=== PATIENT | female | born 1940 | race Caucasian/White ===

== ENCOUNTER 2019-05-20 11:59 | Outpatient (CLI) | payer MEDICARE, OTHER | END 2019-05-20 23:59 | disposition home or self-care (01) | LOC: STAR 11:59 | PROVIDERS: ATTEND Orthopaedic Surgery | DX: Z01.818 Encounter for other preprocedural examination (principal); M17.9 Osteoarthritis of knee, unspecified; R94.31 Abnormal electrocardiogram [ECG] [EKG] | CPT/HCPCS: 36415; 80053; 81001; 83036; 85025; 85610; 85730; 87077; 87081; 87086; 87186; 93005 ==

== ENCOUNTER 2019-08-08 11:25 | Observation (INO) | payer MEDICARE, OTHER ==
[2019-08-06 14:29] LABS: BASOPHILS # (AUTO) 0.05 x10^3/uL (0-0.1); BASOPHILS % (AUTO) 1 % (0-1); EOSINOPHILS # (AUTO) 0.25 x10^3/uL (0-0.4); EOSINOPHILS % (AUTO) 4 % (1-7); LYMPHOCYTES # (AUTO) 1.75 x10^3/uL (1-3.4); LYMPHOCYTES % (AUTO) 27 % (22-44); MD NO; MEAN CORPUSCULAR HEMOGLOBIN 30.8 pg (27.0-34.8); MEAN CORPUSCULAR HGB CONC 32.8 g/dL (32.4-35.8); MEAN PLATELET VOLUME 9.3 fL (7.4-10.4); MONOCYTES # (AUTO) 0.81 x10^3/uL (0.2-0.8); MONOCYTES % (AUTO) 13 % (2-9); NEUTROPHILS # (AUTO) 3.62 x10^3/uL (1.8-6.8); NEUTROPHILS % (AUTO) 56 % (42-75); PLATELET COUNT 164 x10^3/uL (130-400); RED BLOOD COUNT 4.68 x10^6/uL (3.82-5.3); RED CELL DISTRIBUTION WIDTH 13.9 % (9.6-15.2)
[2019-08-06 14:40] LABS: ANION GAP 5 mmol/L (5-15); CALCIUM 8.4 mg/dL (8.5-10.1); CHLORIDE 107 mmol/L (98-107); CREATININE 0.79 mg/dL (0.55-1.02)
[~2019-08-08] VITALS: Ht 172.7 cm; Wt 99.4 kg
[~2019-08-08 11:25] MED LIST: ASPI325T17 PO; CALC-725 PO; FURO20TA3 PO; GABA300C10 PO; IRON1TAB60 PO; LEVO137T3 PO; LIOT5TAB11 PO; OMEP-110 PO; PHEN15CA2 PO; POTA10CA PO; RIVA20TA PO; SIMV20TA3 PO
[2019-08-08 11:49] VITALS: BP 176/66
[2019-08-08] MEDS: SODIUM CHLORIDE 0.9% 1,000 ML IV SCH ×2 (12:00→20:00)
[2019-08-08] MEDS ORDERED: VANCOMYCIN 500 MG ONE (13:31)
[2019-08-08] MEDS ORDERED: MIDAZOLAM 1 MG/ML, 5ML ONE (13:31)
[2019-08-08] MEDS ORDERED: LIDOCAINE 1%, 20ML ONE (13:31)
[2019-08-08] MEDS ORDERED: FENTANYL PF 100 MCG/2ML ONE (13:31)
[2019-08-08] MEDS ORDERED: VANCOMYCIN PMX 1GM/200ML 200 ML ONE (13:31)
[2019-08-08] MEDS ORDERED: HOLD MEDICATION MC PRN (15:00)
[2019-08-08] MEDS ORDERED: HYDROcodone/APAP 5/325 TABLET PO PRN (15:00)
[2019-08-08 15:05] VITALS: BP 144/82
[2019-08-08 20:30] VITALS: BP 137/77
[2019-08-08] MEDS ORDERED: LIOTHYRONINE 5 MCG TABLET PO SCH ×2 (21:00)
[2019-08-08] MEDS: SODIUM CHLORIDE FLUSH 10ML SYR IVF SCH (21:09)
[2019-08-08 22:59] VITALS: BP 141/73
[2019-08-09 02:00] VITALS: BP 150/77
[2019-08-09] MEDS: SODIUM CHLORIDE 0.9% 1,000 ML IV SCH (04:00)
[2019-08-09] MEDS ORDERED: LEVOTHYROXINE 150 MCG TABLET PO SCH (06:00)
[2019-08-09] MEDS ORDERED: OMEPRAZOLE 20 MG CAPSULE.DR PO SCH (06:00)
[2019-08-09 07:51] VITALS: BP 161/80
[2019-08-09] MEDS: SODIUM CHLORIDE FLUSH 10ML SYR IVF SCH (07:54)
[2019-08-09] MEDS ORDERED: POTASSIUM CHLORIDE 10 MEQ TABLET.ER PO SCH (09:00)
[2019-08-09] MEDS ORDERED: MULTIVITAMINS WITH IRON TABLET PO SCH (09:00)
[2019-08-09] MEDS ORDERED: FUROSEMIDE 20 MG TABLET PO SCH (09:00)
== END 2019-08-09 09:58 | disposition home or self-care (01) ==
LOC: CACL 11:25 → 5SO 14:36 → CACL 14:50 → DCLOUNGE 08-09 09:45
PROVIDERS: ADMIT Internal Medicine Cardiovascular Disease; ATTEND Internal Medicine Cardiovascular Disease
DX: I48.91 Unspecified atrial fibrillation (principal); I10 Essential (primary) hypertension; E78.5 Hyperlipidemia, unspecified; E03.9 Hypothyroidism, unspecified; E66.9 Obesity, unspecified; E78.00 Pure hypercholesterolemia, unspecified; Z79.01 Long term (current) use of anticoagulants
CPT/HCPCS: 33207; 36415; 71045; 71046; 80048; 85025; 93005; 99156; C1779; C1786; C1892; G0378; J2250; J3010; J3370; J3490

== ENCOUNTER → 2019-11-19 | Outpatient (CLI) | payer MEDICARE, OTHER ==
[~2019-11-19] MED LIST changes: +LEVO150T5 PO; +SIMV20TA19 PO; -SIMV20TA3 PO
[2019-11-19 12:03] LABS: BASOPHILS # (AUTO) 0.05 x10^3/uL (0-0.1); BASOPHILS % (AUTO) 1 % (0-1); EOSINOPHILS # (AUTO) 0.17 x10^3/uL (0-0.4); EOSINOPHILS % (AUTO) 3 % (1-7); LYMPHOCYTES # (AUTO) 1.63 x10^3/uL (1-3.4); LYMPHOCYTES % (AUTO) 24 % (22-44); MD NO; MEAN CORPUSCULAR HEMOGLOBIN 30.4 pg (27.0-34.8); MEAN CORPUSCULAR HGB CONC 32.9 g/dL (32.4-35.8); MEAN CORPUSCULAR VOLUME 92.2 fL (80-100); MEAN PLATELET VOLUME 9.2 fL (7.4-10.4); MONOCYTES # (AUTO) 0.85 x10^3/uL (0.2-0.8); MONOCYTES % (AUTO) 12 % (2-9); NEUTROPHILS # (AUTO) 4.11 x10^3/uL (1.8-6.8); NEUTROPHILS % (AUTO) 60 % (42-75); PLATELET COUNT 156 x10^3/uL (130-400); RED BLOOD COUNT 4.96 x10^6/uL (3.82-5.3); RED CELL DISTRIBUTION WIDTH 13.8 % (9.6-15.2)
[2019-11-19 12:11] LABS: INTERNATIONAL NORMALIZED RATIO 1.24 (0.93-1.1); PROTHROMBIN TIME 13.2 Seconds (9.6-11.5)
[2019-11-19 12:14] LABS: ALBUMIN 2.9 g/dL (3.4-5.0); ANION GAP 6 mmol/L (5-15); CALCIUM 8.8 mg/dL (8.5-10.1); CHLORIDE 105 mmol/L (98-107)
[2019-11-19 12:17] LABS: ALANINE AMINOTRANSFERASE 10 U/L (12-78); ALKALINE PHOSPHATASE 63 U/L (45-117); BILIRUBIN,TOTAL 0.9 mg/dL (0.2-1.0); CREATININE 0.94 mg/dL (0.55-1.02); TOTAL PROTEIN 8.5 g/dL (6.4-8.2)
== END | disposition home or self-care (01) ==
LOC: STAR 10:43
PROVIDERS: ATTEND Orthopaedic Surgery
DX: Z01.818 Encounter for other preprocedural examination (principal); M17.9 Osteoarthritis of knee, unspecified
CPT/HCPCS: 36415; 80053; 83036; 85025; 85610; 85730; 87081; 93005

== ENCOUNTER 2019-11-27 10:23 | Observation (INO) | payer MEDICARE, OTHER ==
[~2019-11-27] VITALS: Ht 172.7 cm; Wt 94.7 kg
[~2019-11-27 10:23] MED LIST changes: +ACETAMINOPHEN 650 MG/20.3 ML UDC PO PRN; +BISACODYL 10 MG SUPP PR PRN; +DIPHENHYDRAMINE 25 MG CAPSULE PO PRN; +EPINEPHRINE 1 MG/ML, 1ML ONE; +HYDROcodone/APAP 5/325 TABLET PO PRN; +HYDROmorphone 1 MG/ML, 1ML INJ IV PRN; +KETOROLAC 60 MG/2 ML ONE; +MAGNESIUM HYDROXIDE 8%, 30ML UDC PO PRN; +ONDANSETRON 2MG/ML, 2ML IV PRN; +ONDANSETRON 4 MG TABLET PO PRN; +ROPIvacaine/PF 0.5%, 20 ML ONE; +SENNA/DOCUSATE TABLET PO PRN; +SODIUM CHLORIDE 0.9% 50 ML ONE; +TRANEXAMIC ACID 100 MG/ML, 10ML ONE; +VANCOMYCIN 1,000 MG ONE; +ZOLPIDEM 5MG TABLET PO PRN
[2019-11-27] MEDS ORDERED: GABAPENTIN 300 MG CAPSULE PO STA (10:41)
[2019-11-27] MEDS ORDERED: ACETAMINOPHEN 500 MG TABLET PO STA (10:41)
[2019-11-27] MEDS ORDERED: LACTATED RINGERS 1,000 ML IV SCH (10:42)
[2019-11-27] MEDS ORDERED: FENTANYL PF 250 MCG/5ML ONE (10:47)
[2019-11-27] MEDS ORDERED: LIDOCAINE 2% 100MG/5ML SYRINGE ONE (12:04)
[2019-11-27] MEDS ORDERED: hydrALAzine 20 MG/ML, 1ML ONE (12:04)
[2019-11-27] MEDS ORDERED: OXYcodone 5 MG/5 ML ORAL.SOL UDC PO PRN (12:30)
[2019-11-27] MEDS ORDERED: ONDANSETRON ODT 8 MG PO PRN (12:30)
[2019-11-27] MEDS ORDERED: PROMETHAZINE 25 MG/ML, 1ML IV PRN (12:30)
[2019-11-27] MEDS ORDERED: ONDANSETRON 2MG/ML, 2ML IV PRN (12:30)
[2019-11-27] MEDS ORDERED: PROMETHAZINE 25 MG SUPP PR PRN (12:30)
[2019-11-27] MEDS ORDERED: LABETALOL 5MG/ML, 20ML ONE (12:32)
[2019-11-27] MEDS ORDERED: ONDANSETRON 2MG/ML, 2ML ONE (12:32)
[2019-11-27] MEDS ORDERED: PROPOFOL 10 MG/ML, 20ML ONE (12:32)
[2019-11-27] MEDS ORDERED: CEFAZOLIN 1,000 MG ONE (12:32)
[2019-11-27] MEDS ORDERED: DEXAMETHASONE 4 MG/ML, 1ML ONE (12:32)
[2019-11-27] MEDS ORDERED: FENTANYL PF 100 MCG/2ML ONE (13:26)
[2019-11-27] MEDS ORDERED: OXYcodone 5 MG/5 ML ORAL.SOL UDC ONE (13:26)
[2019-11-27] MEDS: FENTANYL PF 100 MCG/2ML IV PRN ×4 (13:31→14:09)
[2019-11-27] MEDS ORDERED: HYDROmorphone 1 MG/ML, 1ML INJ ONE (13:42)
[2019-11-27] MEDS: HYDROmorphone 2 MG/ML, 1ML IVPush PRN ×2 (13:46→14:01)
[2019-11-27] MEDS: NS + 20MEQ KCL 1,000 ML IV SCH (15:17)
[2019-11-27] MEDS: DOCUSATE 100 MG CAPSULE PO SCH ×2 (17:44→19:39)
[2019-11-27] MEDS: FUROSEMIDE 20 MG TABLET PO SCH (17:44)
[2019-11-27] MEDS: ASPIRIN 81 MG TABLET EC PO SCH (17:44)
[2019-11-27] MEDS: POTASSIUM CHLORIDE 10 MEQ TABLET.ER PO SCH (17:44)
[2019-11-27 18:45] VITALS: BP 131/83
[2019-11-27] MEDS: OXYcodone IR 5MG TABLET PO PRN (19:40)
[2019-11-27] MEDS: CEFAZOLIN PMX 2GM/50ML 50 ML IVPB SCH (19:41)
[2019-11-27] MEDS ORDERED: LIOTHYRONINE 5 MCG TABLET PO SCH (21:00)
[2019-11-27 23:36] VITALS: BP 125/68
[2019-11-28 01:00] VITALS: BP 125/68
[2019-11-28 03:33] VITALS: BP 138/62
[2019-11-28] MEDS: NS + 20MEQ KCL 1,000 ML IV SCH ×2 (03:40→15:55)
[2019-11-28] MEDS: CEFAZOLIN PMX 2GM/50ML 50 ML IVPB SCH (04:20)
[2019-11-28] MEDS: ASPIRIN 81 MG TABLET EC PO SCH (05:29)
[2019-11-28] MEDS ORDERED: DEXAMETHASONE 4 MG/ML, 1ML IVPush SCH (06:00)
[2019-11-28] MEDS ORDERED: OMEPRAZOLE 20 MG CAPSULE.DR PO SCH (06:00)
[2019-11-28] MEDS ORDERED: LEVOTHYROXINE 150 MCG TABLET PO SCH (06:00)
[2019-11-28 07:02] VITALS: BP 126/71
[2019-11-28] MEDS ORDERED: OXYC5CAP2 PO (08:41)
[2019-11-28] MEDS ORDERED: TRAM50TA2 PO (08:44)
[2019-11-28] MEDS: DOCUSATE 100 MG CAPSULE PO SCH (09:44)
[2019-11-28] MEDS: FUROSEMIDE 20 MG TABLET PO SCH (09:44)
[2019-11-28] MEDS: POTASSIUM CHLORIDE 10 MEQ TABLET.ER PO SCH (09:44)
[2019-11-28] MEDS: OXYcodone IR 5MG TABLET PO PRN (14:29)
[2019-12-02] MEDS ORDERED: CEPH-368 PO (08:16)
== END 2019-11-28 17:31 | disposition home or self-care (01) ==
LOC: OUT 10:23 → 4NE 14:59 → OUT 20:55 → 4NE 20:56 → DCLOUNGE 11-28 17:18
PROVIDERS: ADMIT Orthopaedic Surgery; ATTEND Orthopaedic Surgery
DX: M17.11 Unilateral primary osteoarthritis, right knee (principal); M21.061 Valgus deformity, not elsewhere classified, right knee; I48.91 Unspecified atrial fibrillation; E03.9 Hypothyroidism, unspecified; Z79.899 Other long term (current) drug therapy; Z88.0 Allergy status to penicillin
CPT/HCPCS: 27447; 36415; 85014; 85018; 96365; 96366; 96375; 97110; 97116; 97161; 97165; 97530; C1713; C1776; G0378; J0171; J0360; J0690; J1100; J1170; J1885; J2405; J2704; J2795; J3010; J3370; J3480; J7120

== ENCOUNTER → 2020-10-16 | Outpatient (CLI) | payer MEDICARE, OTHER ==
[~2020-10-16] MED LIST changes: -ACETAMINOPHEN 650 MG/20.3 ML UDC PO PRN; -BISACODYL 10 MG SUPP PR PRN; +CEPH-368 PO; -DIPHENHYDRAMINE 25 MG CAPSULE PO PRN; -EPINEPHRINE 1 MG/ML, 1ML ONE; -HYDROcodone/APAP 5/325 TABLET PO PRN; -HYDROmorphone 1 MG/ML, 1ML INJ IV PRN; -KETOROLAC 60 MG/2 ML ONE; -MAGNESIUM HYDROXIDE 8%, 30ML UDC PO PRN; -ONDANSETRON 2MG/ML, 2ML IV PRN; -ONDANSETRON 4 MG TABLET PO PRN; +OXYC5CAP2 PO; -ROPIvacaine/PF 0.5%, 20 ML ONE; -SENNA/DOCUSATE TABLET PO PRN; -SODIUM CHLORIDE 0.9% 50 ML ONE; +TRAM50TA2 PO; -TRANEXAMIC ACID 100 MG/ML, 10ML ONE; -VANCOMYCIN 1,000 MG ONE; -ZOLPIDEM 5MG TABLET PO PRN
== END | disposition home or self-care (01) ==
LOC: CFH 14:43
PROVIDERS: ATTEND Physician Assistant Medical
DX: I08.3 Combined rheumatic disorders of mitral, aortic and tricuspid valves (principal); I11.9 Hypertensive heart disease without heart failure; I27.20 Pulmonary hypertension, unspecified; I48.91 Unspecified atrial fibrillation
CPT/HCPCS: 93306

== ENCOUNTER → 2020-10-24 | Outpatient (CLI) | payer MEDICARE, OTHER ==
[~2020-10-24] MED LIST changes: +WARF1TAB74 PO
[2020-10-24 11:06] LABS: INTERNATIONAL NORMALIZED RATIO 5.28 (0.93-1.1)
[2020-10-24 14:01] LABS: PROTHROMBIN TIME 55.1 Seconds (9.6-11.5)
== END | disposition home or self-care (01) ==
LOC: LAB 10:06
PROVIDERS: ATTEND Family Medicine
DX: I51.3 Intracardiac thrombosis, not elsewhere classified (principal)
CPT/HCPCS: 36415; 85610

== ENCOUNTER → 2020-11-02 | Outpatient (CLI) | payer MEDICARE, OTHER ==
[2020-11-02 12:51] LABS: INTERNATIONAL NORMALIZED RATIO 7.3 (0.93-1.1); PROTHROMBIN TIME 75.1 Seconds (9.6-11.5)
== END | disposition home or self-care (01) ==
LOC: LAB 11:23
PROVIDERS: ATTEND Family Medicine
DX: I51.3 Intracardiac thrombosis, not elsewhere classified (principal)
CPT/HCPCS: 36415; 85610

== ENCOUNTER → 2020-11-09 | Outpatient (CLI) | payer MEDICARE, OTHER ==
[2020-11-09 12:29] LABS: INTERNATIONAL NORMALIZED RATIO 4.11 (0.93-1.1); PROTHROMBIN TIME 42.8 Seconds (9.6-11.5)
== END | disposition home or self-care (01) ==
LOC: LAB 11:58
PROVIDERS: ATTEND Internal Medicine Cardiovascular Disease
DX: I48.20 Chronic atrial fibrillation, unspecified (principal); Z79.01 Long term (current) use of anticoagulants
CPT/HCPCS: 36415; 85610

== ENCOUNTER 2020-11-23 11:22 | Outpatient (CLI) | payer MEDICARE, OTHER ==
[2020-11-23 11:55] LABS: INTERNATIONAL NORMALIZED RATIO 3.08 (0.93-1.1); PROTHROMBIN TIME 32.2 Seconds (9.6-11.5)
== END 2020-11-23 23:59 | disposition home or self-care (01) ==
LOC: LAB 11:22
PROVIDERS: ATTEND Internal Medicine Cardiovascular Disease
DX: I48.20 Chronic atrial fibrillation, unspecified (principal); Z79.01 Long term (current) use of anticoagulants
CPT/HCPCS: 36415; 85610

== ENCOUNTER → 2021-01-04 | Outpatient (CLI) | payer MEDICARE, OTHER ==
[2021-01-04 12:48] LABS: INTERNATIONAL NORMALIZED RATIO 2.01 (0.93-1.1); PROTHROMBIN TIME 21.2 Seconds (9.6-11.5)
== END | disposition home or self-care (01) ==
LOC: LAB 12:19
PROVIDERS: ATTEND Internal Medicine Cardiovascular Disease
DX: I48.20 Chronic atrial fibrillation, unspecified (principal); Z79.01 Long term (current) use of anticoagulants
CPT/HCPCS: 36415; 85610

== ENCOUNTER → 2021-02-01 | Outpatient (CLI) | payer MEDICARE, OTHER ==
[2021-02-01 12:42] LABS: INTERNATIONAL NORMALIZED RATIO 1.75 (0.93-1.1); PROTHROMBIN TIME 18.5 Seconds (9.6-11.5)
== END | disposition home or self-care (01) ==
LOC: LAB 12:10
PROVIDERS: ATTEND Internal Medicine Cardiovascular Disease
DX: I48.20 Chronic atrial fibrillation, unspecified (principal); Z79.01 Long term (current) use of anticoagulants
CPT/HCPCS: 36415; 85610

== ENCOUNTER → 2021-02-08 | Outpatient (CLI) | payer MEDICARE, OTHER ==
[2021-02-08 12:30] LABS: INTERNATIONAL NORMALIZED RATIO 2.32 (0.93-1.1); PROTHROMBIN TIME 24.4 Seconds (9.6-11.5)
== END | disposition home or self-care (01) ==
LOC: LAB 12:02
PROVIDERS: ATTEND Internal Medicine Cardiovascular Disease
DX: I48.20 Chronic atrial fibrillation, unspecified (principal); Z79.01 Long term (current) use of anticoagulants
CPT/HCPCS: 36415; 85610

== ENCOUNTER → 2021-03-08 | Outpatient (CLI) | payer MEDICARE, OTHER ==
[2021-03-08 12:16] LABS: INTERNATIONAL NORMALIZED RATIO 3.96 (0.93-1.1); PROTHROMBIN TIME 41.2 Seconds (9.6-11.5)
== END | disposition home or self-care (01) ==
LOC: LAB 11:40
PROVIDERS: ATTEND Internal Medicine Cardiovascular Disease
DX: I48.20 Chronic atrial fibrillation, unspecified (principal); Z79.01 Long term (current) use of anticoagulants
CPT/HCPCS: 36415; 85610

== ENCOUNTER → 2021-03-17 | Outpatient (CLI) | payer MEDICARE, OTHER ==
[2021-03-17 12:02] LABS: INTERNATIONAL NORMALIZED RATIO 4.24 (0.93-1.1)
[2021-03-17 12:11] LABS: PROTHROMBIN TIME 44.1 Seconds (9.6-11.5)
== END | disposition home or self-care (01) ==
LOC: LAB 11:36
PROVIDERS: ATTEND Internal Medicine Cardiovascular Disease
DX: I48.20 Chronic atrial fibrillation, unspecified (principal); Z79.01 Long term (current) use of anticoagulants
CPT/HCPCS: 36415; 85610

== ENCOUNTER → 2021-03-24 | Outpatient (CLI) | payer MEDICARE, OTHER ==
[2021-03-24 09:28] LABS: INTERNATIONAL NORMALIZED RATIO 5.73 (0.93-1.1); PROTHROMBIN TIME 59.2 Seconds (9.6-11.5)
== END | disposition home or self-care (01) ==
LOC: LAB 08:51
PROVIDERS: ATTEND Internal Medicine Cardiovascular Disease
DX: I48.20 Chronic atrial fibrillation, unspecified (principal); Z79.01 Long term (current) use of anticoagulants
CPT/HCPCS: 36415; 85610

== ENCOUNTER → 2021-03-26 | Outpatient (CLI) | payer MEDICARE, OTHER ==
[2021-03-26 12:16] LABS: INTERNATIONAL NORMALIZED RATIO 4.35 (0.93-1.1); PROTHROMBIN TIME 45.2 Seconds (9.6-11.5)
== END | disposition home or self-care (01) ==
LOC: LAB 11:52
PROVIDERS: ATTEND Internal Medicine Cardiovascular Disease
DX: I48.20 Chronic atrial fibrillation, unspecified (principal); Z79.01 Long term (current) use of anticoagulants
CPT/HCPCS: 36415; 85610

== ENCOUNTER → 2021-04-02 | Outpatient (CLI) | payer MEDICARE, OTHER ==
[2021-04-02 11:53] LABS: INTERNATIONAL NORMALIZED RATIO 2.65 (0.93-1.1); PROTHROMBIN TIME 27.1 Seconds (9.6-11.5)
== END | disposition home or self-care (01) ==
LOC: LAB 11:24
PROVIDERS: ATTEND Internal Medicine Cardiovascular Disease
DX: I48.20 Chronic atrial fibrillation, unspecified (principal); Z79.01 Long term (current) use of anticoagulants
CPT/HCPCS: 36415; 85610

== ENCOUNTER → 2021-04-12 | Outpatient (CLI) | payer MEDICARE, OTHER ==
[2021-04-12 12:17] LABS: INTERNATIONAL NORMALIZED RATIO 1.75 (0.93-1.1); PROTHROMBIN TIME 18.2 Seconds (9.6-11.5)
== END | disposition home or self-care (01) ==
LOC: LAB 11:42
PROVIDERS: ATTEND Internal Medicine Cardiovascular Disease
DX: I48.20 Chronic atrial fibrillation, unspecified (principal); Z79.01 Long term (current) use of anticoagulants
CPT/HCPCS: 36415; 85610

== ENCOUNTER → 2021-04-27 | Outpatient (CLI) | payer MEDICARE, OTHER ==
[2021-04-27 11:53] LABS: INTERNATIONAL NORMALIZED RATIO 1.79 (0.93-1.1); PROTHROMBIN TIME 18.6 Seconds (9.6-11.5)
== END | disposition home or self-care (01) ==
LOC: LAB 11:24
PROVIDERS: ATTEND Internal Medicine Cardiovascular Disease
DX: I48.20 Chronic atrial fibrillation, unspecified (principal); Z79.01 Long term (current) use of anticoagulants
CPT/HCPCS: 36415; 85610

== ENCOUNTER → 2021-05-07 | Outpatient (CLI) | payer MEDICARE, OTHER ==
[2021-05-07 10:26] LABS: BASOPHILS % (AUTO) 1 % (0-1); EOSINOPHILS % (AUTO) 5 % (1-7); LYMPHOCYTES % (AUTO) 26 % (22-44); MEAN CORPUSCULAR HGB CONC 33.7 g/dL (32.4-35.8); MEAN PLATELET VOLUME 9.1 fL (7.4-10.4); MONOCYTES % (AUTO) 12 % (2-9); NEUTROPHILS % (AUTO) 57 % (42-75); PLATELET COUNT 149 x10^3/uL (130-400); RED BLOOD COUNT 4.65 x10^6/uL (3.82-5.3); RED CELL DISTRIBUTION WIDTH 13.9 % (9.6-15.2)
[2021-05-07 10:28] LABS: MICROSCOPIC INDICATED
[2021-05-07 10:31] LABS: INTERNATIONAL NORMALIZED RATIO 2.45 (0.93-1.1); PROTHROMBIN TIME 25.1 Seconds (9.6-11.5)
[2021-05-07 10:38] LABS: ALANINE AMINOTRANSFERASE 12 U/L (12-78); ALBUMIN 2.7 g/dL (3.4-5.0); ANION GAP 5 mmol/L (5-15); CALCIUM 8.8 mg/dL (8.5-10.1); CHLORIDE 106 mmol/L (98-107); CHOLESTEROL, TOTAL 143 mg/dL (140-239); CREATININE 0.89 mg/dL (0.55-1.02)
[2021-05-07 11:03] LABS: ALKALINE PHOSPHATASE 63 U/L (45-117); BILIRUBIN,TOTAL 0.9 mg/dL (0.2-1.0); CHOL/HDL RATIO 3.6; HDL CHOL % 28 % (28-40); HDL CHOLESTEROL (DIRECT) 40 mg/dL (40-60); LDL CHOLESTEROL,CALCULATED 85 mg/dL (54-169); LDL/HDL RATIO 2.1 (0.5-3.0); T4 (THYROXINE) 11.8 mcg/dL (4.8-13.9); TOTAL PROTEIN 7.8 g/dL (6.4-8.2); TRIGLYCERIDES 88 mg/dL (50-200); VLDL CHOLESTEROL 18 mg/dL (0-25)
== END | disposition home or self-care (01) ==
LOC: LAB 09:49
PROVIDERS: ATTEND Internal Medicine Cardiovascular Disease
DX: I11.0 Hypertensive heart disease with heart failure (principal); E03.9 Hypothyroidism, unspecified; E66.9 Obesity, unspecified; I48.20 Chronic atrial fibrillation, unspecified; E55.9 Vitamin D deficiency, unspecified; E11.9 Type 2 diabetes mellitus without complications; E78.5 Hyperlipidemia, unspecified; E78.00 Pure hypercholesterolemia, unspecified; I49.5 Sick sinus syndrome; I51.3 Intracardiac thrombosis, not elsewhere classified; I50.32 Chronic diastolic (congestive) heart failure; R35.1 Nocturia; R53.83 Other fatigue; Z79.01 Long term (current) use of anticoagulants
CPT/HCPCS: 36415; 80053; 80061; 81001; 82306; 83036; 84436; 84439; 84443; 84481; 85025; 85610; 87077; 87086; 87186

== ENCOUNTER → 2021-05-14 | Outpatient (CLI) | payer MEDICARE, OTHER ==
[2021-05-14 12:14] LABS: INTERNATIONAL NORMALIZED RATIO 4.42 (0.93-1.1); PROTHROMBIN TIME 44.1 Seconds (9.6-11.5)
== END | disposition home or self-care (01) ==
LOC: LAB 11:36
PROVIDERS: ATTEND Internal Medicine Cardiovascular Disease
DX: I48.20 Chronic atrial fibrillation, unspecified (principal); Z79.01 Long term (current) use of anticoagulants
CPT/HCPCS: 36415; 85610

== ENCOUNTER → 2021-05-21 | Outpatient (CLI) | payer MEDICARE, OTHER ==
[2021-05-21 12:53] LABS: INTERNATIONAL NORMALIZED RATIO 2.07 (0.93-1.1); PROTHROMBIN TIME 21.4 Seconds (9.6-11.5)
== END | disposition home or self-care (01) ==
LOC: LAB 12:25
PROVIDERS: ATTEND Internal Medicine Cardiovascular Disease
DX: I48.20 Chronic atrial fibrillation, unspecified (principal); Z79.01 Long term (current) use of anticoagulants
CPT/HCPCS: 36415; 85610

== ENCOUNTER 2021-06-01 06:35 | Outpatient (CLI) | payer MEDICARE, OTHER ==
[2021-06-01] MEDS ORDERED: REGADENOSON 0.4 MG/5 ML SYRINGE ONE (07:29)
== END 2021-06-01 23:59 | disposition home or self-care (01) ==
LOC: CVU 06:35 → CFH 23:59
PROVIDERS: ATTEND Internal Medicine Cardiovascular Disease
DX: I08.3 Combined rheumatic disorders of mitral, aortic and tricuspid valves (principal); I42.9 Cardiomyopathy, unspecified
CPT/HCPCS: 78452; 93017; 93306; A9502; J2785